=== PATIENT | male | born 1935 | race Caucasian/White ===

== ENCOUNTER → 2016-08-12 | Outpatient (CLI) | payer OTHER ==
[~2016-08-12] MED LIST: ADVIL200 M3 PO; ATENOLOL50 MG PO; B-121000 MC3 PO; GLUCOSAMINE CHO1 CA2 PO; LISINOPRIL10 MG PO; NIACIN250 M1 PO; TRIAMTERENE-HCT1 TA8 PO; VITAMIN D32000 UNI1 PO
--- NOTE | ~2016-08-12 | US37 ---
[facility] A Service of [facility] RADIOLOGY TEXT RESULTS PATIENT: TARAS AMARO JR LOCATION: CNIV : 37 UNIT #: [id number] AGE: [address]: Darrell Wilson MD SEX: M ORDER DR: [id number] [facility] [address] [place], [place] [address] [id number] O MR#: [id number] [facility] #: [id number] NAME: TARAS AMARO : 1935 SEX: M STUDY DATE/TIME: 08/12/2016 8:54 UNIT: CNIV ROOM: STUDY DESCRIPTION: US Carotid W/Doppler Bilateral Attending Physician: Darrell Wilson M.D. Referring Physician: Darrell Wilson M.D. Ordering Physician: Darrell Wilson M.D. Primary Care Physician: No Primary Care Physician MEDICAL IMAGING REPORT This report is preliminary unless electronic signature is present EXAM Carotid duplex scan. DATE OF EXAMINATION 08/12/2016 HISTORY Carotid stenosis. FINDINGS The right common carotid artery has a small amount of dense plaque. There is heterogeneous dense plaque in the right carotid bulb which extends up into the proximal internal and external carotid arteries. Peak systolic velocity in the distal right internal carotid artery is 89 cm/sec with an end-diastolic velocity of 27 cm/sec. The ICA/CCA ratio on the right is 1.63. Peak systolic velocity in the right external carotid artery is 99 cm/sec. The right vertebral artery is patent with antegrade flow. The left common carotid artery has a large amount of dense irregular plaque. Peak systolic velocity in the left common carotid artery is 72 cm/sec. there is dense irregular plaque in the left carotid bulb which extends up into the proximal internal and external carotid arteries. Peas systolic velocity in the mid left internal carotid artery is 172 cm/sec with an end-diastolic velocity of 50 cm/sec. The ICA/CCA ratio on the left is 2.3. Peak systolic velocity in the left external carotid artery is 182 cm/sec. The left vertebral artery is patent with antegrade flow. IMPRESSION Plaque, but no significant stenosis (less than 50%) in the right internal and external carotid arteries. Moderate stenosis (50% to 69%) in the left internal carotid artery. Significant stenosis of the left external STS. [facility] A Service of [facility] RADIOLOGY TEXT RESULTS PATIENT: TARAS AMARO JR LOCATION: [facility] : 37 UNIT #: [id number] AGE: [address]: Darrell Wilson MD SEX: M ORDER DR: carotid artery. Patent vertebral arteries bilaterally with antegrade flow. Dictated by... Kadeem Hines M.D. THIS IS AN ELECTRONICALLY VERIFIED REPORT Kadeem Hines M.D. at 08/14/2016 5:19 PM WIL/vanessa TD: 08/12/2016 14:13 JOB #: [id number] MEDICAL IMAGING REPORT Page 1 of 1 COPY
== END | disposition home or self-care (01) ==
LOC: CNIV 08:32
DX: I65.23 Occlusion and stenosis of bilateral carotid arteries (principal)
CPT/HCPCS: 93880

== ENCOUNTER → 2016-10-07 | Outpatient (CLI) | payer OTHER ==
[2016-10-07 17:08] LABS: ALBUMIN SERUM 4.2 g/dL (3.5-5.0); BILIRUBIN,TOTAL 0.8 mg/dL (0.2-2.0); CALCIUM SERUM 9.4 mg/dL (8.4-10.2); GLOM FILT RATE Estimated 70.8 mL/min (>60); POTASSIUM 4.2 mmol/L (3.5-5.1); PROTEIN TOTAL SERUM 7.1 g/dL (6.0-8.3)
== END | disposition home or self-care (01) ==
LOC: CLAB 16:22
DX: E78.5 Hyperlipidemia, unspecified (principal)
CPT/HCPCS: 36415; 80053; 80061; 83735